=== PATIENT | male | born 1990 | race Caucasian/White ===

== ENCOUNTER 2017-07-30 11:37 | Emergency (ER) | payer BC, OTHER ==
[2017-07-30 11:57] VITALS: BP 138/86
--- NOTE | 2017-07-30 12:28 | UC ---
Cardiac HPI - HPI Summary HPI Summary: Pt presents with chest pain. Last [place] he [place], towards the end of the night with about 20mins left in the performance - he felt his heart start to race. He admits that this made him anxious. He soon thereafter developed pressure in his chest, he started sweating , and felt his arms become weak. This lasted about 10-15 minutes and gradually improved. Today he is feeling ok and without chest pain, SOB, weakness, headache, dizziness, or chest pressure. He tells me that he is currently seeing [facility] for increasing anxiety and panic attacks - is currently not on medication , but is set to undergo a psych eval next week. The event last night was very similar to his previous panic attacks. Denies fever, chills, recent illness, cough, SOB, chest pain, chest pressure, abdominal pain, headache, N/V/D/C. He denies alcohol use or drug use. - History of Current Complaint Chief Complaint: UCChestPain Stated Complaint: CHEST PRESSURE-POSSIBLE ANXIETY Time Seen by Provider: 07/30/17 12:18 Hx Obtained From: Patient Initial Severity: Severe Current Severity: None Chest Pain Location: Left Anterior Character: Pressure/Squeezing Aggravating Factor(s): Nothing Alleviating Factor(s): Rest, Spontaneous Resolution - Allergy/Home Medications Allergies/Adverse Reactions: Allergies Allergy/AdvReac Type Severity Reaction Status Date / Time Penicillins [PCN] Allergy Shortness Verified 11/01/14 00:03 of Breath Home Medications: Home Medications NK [No Home Medications Reported] 07/30/17 [History Confirmed 07/30/17] PMH/Surg Hx/FS Hx/Imm Hx Previously Healthy: Yes Psychological History: Anxiety - Surgical History Surgical History: None - Social History Occupation: Student Lives: Alone Alcohol Use: Weekly Substance Use Type: None Smoking Status (MU): Never Smoked Tobacco Review of Systems Constitutional: Negative Skin: Negative Eyes: Negative ENT: Negative Respiratory: Negative Cardiovascular: Palpitations - Last night, Chest Pain - Last night, Other Gastrointestinal: Negative Neurovascular: Negative Neurological: Negative Psychological: Negative All Other Systems Reviewed And Are Negative: Yes Physical Exam Triage Information Reviewed: Yes Appearance: Well-Appearing, Well-Nourished Vital Signs: Initial Vital Signs Temp 98.6 F 07/30/17 11:52 Pulse 86 07/30/17 11:52 Resp 18 07/30/17 11:52 BP 138/86 07/30/17 11:52 Pulse Ox 97 07/30/17 11:52 Vital Signs Reviewed: Yes Eyes: Positive: Conjunctiva Clear, Other: - EOMI. PERRLA. No papilledema. ENT: Positive: Hearing grossly normal, Pharynx normal, TMs normal, Uvula midline. Negative: Pharyngeal erythema, Nasal congestion, Nasal drainage, TM bulging, TM dull, TM red, Tonsillar swelling, Tonsillar exudate, Sinus tenderness Neck: Positive: Supple, Nontender, No Lymphadenopathy Respiratory: Positive: Chest non-tender, Lungs clear, Normal breath sounds, No respiratory distress, No accessory muscle use Cardiovascular: Positive: RRR, No Murmur, Pulses Normal, Brisk Capillary Refill Abdomen Description: Positive: Nontender, No Organomegaly, Soft. Negative: Distended, Guarding Bowel Sounds: Positive: Present Musculoskeletal: Positive: Strength Intact, ROM Intact, No Edema Neurological: Positive: Alert, Muscle Tone Normal, Other: - CNII-XII grossly intact. Psychological: Positive: Age Appropriate Behavior Skin: Negative: rashes, significant lesion(s) - Assessment/Plan Course Of Treatment: EKG was performed and NSR - verified by Dr. Whitfield. Pt is asymptomatic currently and has a normal physical exam. Chest pain likely anxiety related. Advised to follow up with [facility] for anxiety. Advised that if his symptoms return he should call his PCP or go to ED. - Differential Diagnoses - Chest Pain Differential Diagnosis/HQI/PQRI: Acute MS, Angina, Pulmonary Edema, Other: - Anxiety. Panic Attack. - Clinical Impression Provider Diagnoses: Panic attack. Anxiety. Chest pain Discharge - Discharge Plan Condition: Stable Disposition: HOME Patient Education Materials: Anxiety (ED), Panic Attack (ED) Referrals: No Primary Care Phys,NOPCP [Primary Care Provider] - Additional Instructions: 1) Please continue to follow up with [facility] If you develop a fever, SOB, reoccurring chest pain, new or worsening symptoms - please call your PCP or go to the ED. Your blood pressure was high at todays visit. Please see your primary provider within 4 weeks for recheck and re-evaluation.
== END 2017-07-30 12:45 | disposition home or self-care (01) ==
LOC: UCEAST 11:37
DX: F41.0 Panic disorder [episodic paroxysmal anxiety] (principal); F41.9 Anxiety disorder, unspecified; R07.9 Chest pain, unspecified
CPT/HCPCS: 99211; G0463

== ENCOUNTER 2017-11-10 00:06 | Emergency (ER) | payer OTHER ==
[2017-11-10 00:49] LABS: Urine Appearance Clear; Urine Blood 2+ (Negative); Urine Color Yellow; Urine Ketones Negative (Negative); Urine Protein Negative (Negative); Urine Specific Gravity 1.015 (1.010-1.030); Urine Urobilinogen Negative (Negative)
[2017-11-10] MEDS ORDERED: Ciprofloxacin TAB* 500 MG PO ONE (01:05)
[2017-11-10 01:18] VITALS: BP 122/74
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
== END 2017-11-10 01:16 | disposition home or self-care (01) ==
LOC: ED 00:06
DX: S37.10XA Unspecified injury of ureter, initial encounter (principal); X58.XXXA Exposure to other specified factors, initial encounter; Z88.0 Allergy status to penicillin
CPT/HCPCS: 81003; 81015; 87086; 99282; A9270-GY

== ENCOUNTER 2019-01-29 16:47 | Emergency (ER) | payer OTHER ==
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
[2019-01-29 19:23] VITALS: BP 136/89
== END 2019-01-29 19:22 | disposition home or self-care (01) ==
LOC: ED 16:47
DX: T59.5X1A Toxic effect of fluorine gas and hydrogen fluoride, accidental (unintentional), initial encounter (principal); T23.601A Corrosion of second degree of right hand, unspecified site, initial encounter; T32.0 Corrosions involving less than 10% of body surface; T79.8XXA Other early complications of trauma, initial encounter; Y92.89 Other specified places as the place of occurrence of the external cause; Y99.0 Civilian activity done for income or pay; J45.909 Unspecified asthma, uncomplicated; Z88.0 Allergy status to penicillin; Z79.51 Long term (current) use of inhaled steroids
CPT/HCPCS: 36415; 82310; 99282